=== PATIENT | male | born 1965 | race Two or more races ===

== ENCOUNTER 2018-11-05 07:50 | Emergency (ER) | payer OTHER ==
[~2018-11-05] VITALS: Ht 185.4 cm; Wt 81.6 kg
[2018-11-05] MEDS ORDERED: URIN D.S. TABL1 EACH PO (11:46)
[2018-11-05] MEDS ORDERED: DUI500 PO (11:46)
== END 2018-11-05 12:40 | disposition home or self-care (01) ==
LOC: ER 07:50
DX: N39.0 Urinary tract infection, site not specified (principal)

== ENCOUNTER 2023-10-15 07:58 | Outpatient (CLI) | payer OTHER ==
[~2023-10-15 07:58] MED LIST: DUI500 PO; URIN D.S. TABL1 EACH PO
== END 2023-10-15 08:09 | disposition home or self-care (01) ==
LOC: RAD 07:58
DX: M54.51 Vertebrogenic low back pain (principal); M25.551 Pain in right hip; M25.552 Pain in left hip

== ENCOUNTER 2023-10-22 08:23 | Day surgery (SDC) | payer OTHER ==
[2023-10-17 10:32] LABS: PH,URINE 6.5 (5.0-8.0); URINE APPEARANCE Clear; URINE BILIRRUBIN Negative (NEGATIVE); URINE BLOOD Negative; URINE COLOR Yellow; URINE GLUCOSE Negative (NEGATIVE); URINE LEUKOCYTE Negative; URINE NITRATE Negative; URINE PROTEIN Negative (NEGATIVE); URINE UROBILINOGEN 0.2 E.U./dl
[2023-10-17 10:38] LABS: URINE BACTERIA 7.5 uL (0.0-1933); URINE EPITHELIAL CELLS 1.6 uL (0.0-38.8); URINE RBC 3.5 uL (0.0-20.8)
[2023-10-17 10:42] LABS: HEMATOCRIT 40.1 % (39.0-48.0); MEAN CELL VOLUME 88.3 fL (80.0-100.00); MEAN CORPUSCULAR HEMOGLOBIN 30.8 pg (27.00-32.0); MEAN CORPUSCULAR HGB CONC 34.9 g/dl (32.0-36.0); PLATELET COUNT 361 K/uL (150-450); RED BLOOD COUNT 4.54 M/uL (4.00-6.00)
[2023-10-17 10:51] LABS: URINE WBC 1.2 uL (0.0-23.2)
[2023-10-17 11:03] LABS: INR 1.03; PARTIAL THROMBOPLASTIN TIME 27.3 SECONDS (22.0-34.0); PROTHROMBIN TIME 10.8 SECONDS (9.0-11.5)
[2023-10-17 11:21] LABS: CREATININE SERUM 1.01 mg/dL (0.70-1.30); GFR 75.35; POTASSIUM 5.05 mEq/L (3.5-5.1)
[2023-10-22] MEDS ORDERED: PERCOCET 5-3251 EACH PO (18:53)
[2023-10-22] MEDS ORDERED: POLY119PG PO (18:53)
[2023-10-22] MEDS ORDERED: NEURONTIN300 MG PO (18:53)
== END 2023-10-22 23:46 | disposition home or self-care (01) ==
LOC: CIR.AMB 08:23
PROVIDERS: ATTEND Surgery
DX: K40.90 Unilateral inguinal hernia, without obstruction or gangrene, not specified as recurrent (principal); Z20.822 Contact with and (suspected) exposure to COVID-19
CPT/HCPCS: 49650; C1781

== ENCOUNTER → 2023-11-23 | Emergency (ER) | payer OTHER ==
[~2023-11-23] VITALS: Ht 185.4 cm; Wt 74.8 kg
[~2023-11-23] MED LIST changes: +GLUMETZA1000 MG PO; +NEURONTIN300 MG PO; +PERCOCET 5-3251 EACH PO; +POLY119PG PO
[2023-11-23 19:34] LABS: HEMATOCRIT 39.1 % (39.0-48.0); HEMOGLOBIN 13.2 g/dL (13-16.00); MEAN CELL VOLUME 88.3 fL (80.0-100.00); MEAN CORPUSCULAR HEMOGLOBIN 29.8 pg (27.00-32.0); MEAN CORPUSCULAR HGB CONC 33.7 g/dl (32.0-36.0); PLATELET COUNT 258 K/uL (150-450); RED BLOOD COUNT 4.42 M/uL (4.00-6.00); RED CELL DISTRIBUTION WIDTH 13.9 % (11.5-14.5)
[2023-11-23 19:54] LABS: ALBUMIN 3.6 gm/dL (3.4-5.0); BILIRUBIN TOTAL 0.27 mg/dL (0.3-1.2); CALCIUM 9.4 mg/dL (8.5-10.1); CREATININE SERUM 1.1 mg/dL (0.70-1.30); GFR 68.28; GLOBULINA 3.9 G/DL (2.4-3.5); POTASSIUM 3.81 mEq/L (3.5-5.1); TOTAL PROTEIN 7.5 gm/dL (6.4-8.2)
[2023-11-23 20:04] LABS: PH,URINE 6.5 (5.0-8.0); URINE APPEARANCE Clear; URINE BILIRRUBIN Negative (NEGATIVE); URINE BLOOD Negative; URINE COLOR Yellow; URINE GLUCOSE Negative (NEGATIVE); URINE LEUKOCYTE Negative; URINE NITRATE Negative; URINE PROTEIN Negative (NEGATIVE); URINE UROBILINOGEN 0.2 E.U./dl
[2023-11-23 20:13] LABS: URINE EPITHELIAL CELLS 0.6 uL (0.0-38.8); URINE RBC 0.4 uL (0.0-20.8); URINE WBC 1.3 uL (0.0-23.2)
== END | disposition designated cancer center or children's hospital (05) ==
LOC: ER 17:49
PROVIDERS: General Practice
DX: T18.108A Unspecified foreign body in esophagus causing other injury, initial encounter (principal); Z20.822 Contact with and (suspected) exposure to COVID-19; E11.9 Type 2 diabetes mellitus without complications; Z79.84 Long term (current) use of oral hypoglycemic drugs